=== PATIENT | female | born 1950 | race Caucasian/White ===

== ENCOUNTER 2017-06-28 10:19 | Day surgery (SDC) | payer OTHER ==
[~2017-06-28] VITALS: Ht 152.4 cm; Wt 62.0 kg
[~2017-06-28 10:19] MED LIST: ASTHMA MEDICATION
[2017-06-28 10:56] VITALS: Ht 152.4 cm; Wt 62.0 kg
[2017-06-28] MEDS ORDERED: [UNRECOGNIZED DRUG - OTHER] (10:59)
[2017-06-28] MEDS ORDERED: LOSARTAN (10:59)
[2017-06-28] MEDS ORDERED: ZANTAC (10:59)
[2017-06-28] MEDS ORDERED: SIMVASTATIN (10:59)
[2017-06-28 11:06] VITALS: BP 125/59; PULSE 64; RESP 18
--- NOTE | 2017-06-28 12:01 | OPPN ---
Date/Time of Note Date/Time of Note DATE: 06/28/17 TIME: 11:59 Operative Report Preoperative Diagnosis Screening Postoperative Diagnosis Melanosis coli Sigmoid colon polyp was removed Internal hemorrhoids Operation/Procedure Performed Colonoscopy and biopsy Surgeon see signature line phlebotomist lab assistant None Anesthesia: moderate sedation Estimated blood loss: none Transfusion Required none Specimen Sigmoid polyp Grafts/Implants none Complications none JAIRO CID MD Jun 28, 2017 12:01
[2017-06-28] MEDS ORDERED: MIDAZOLAM 1 MG/ML 2 ML INJ ONE ×2 (12:15→12:16)
[2017-06-28] MEDS ORDERED: FENTAnyl 50 MCG/ML VIAL ONE (12:15)
[2017-06-28 12:25] VITALS: BP 108/58; RESP 22
--- NOTE | 2017-06-28 12:41 | GILP ---
DATE OF PROCEDURE: NAME OF PROCEDURES: Colonoscopy and biopsy. SURGEON: Jairo Arrieta MD PREOPERATIVE DIAGNOSIS: Screening colonoscopy. POSTOPERATIVE DIAGNOSES 1. Colonoscopy all the way to the cecum. 2. Small sigmoid colon polyp was removed. 3. Redundant colon. 4. Melanosis coli. 5. Internal hemorrhoids. INDICATION FOR THE PROCEDURE: Ms. Lory Corona is a 66-year-old female patient who was scheduled for screening colonoscopy. The procedure and possible complications are well explained to the patient. The patient understood and consented to the procedure. DESCRIPTION OF PROCEDURE: Under the influence of fentanyl and Versed, the colonoscope was carefully introduced in the rectum and under direct vision, it was advanced all the way to the cecum. FINDINGS: The patient had a redundant colon. She had melanosis coli. She had a small sigmoid colo n polyp and it was removed using the biopsy forceps. She had internal hemorrhoids. She tolerated the procedure very well and there was no complication from the procedure. At the end of the procedures, she was awake with stable vital signs and she was discharged home to the care of her family. IMPRESSION: Please see postoperative diagnosis. PLAN: Next screening colonoscopy in 10 years. Dictated By: JAIRO VIERA/DARSHAN Conf#: [id number] DID#: [id number]
== END 2017-06-28 13:53 | disposition home or self-care (01) ==
LOC: GIL 10:19
PROVIDERS: ATTEND Internal Medicine Gastroenterology
DX: Z12.11 Encounter for screening for malignant neoplasm of colon (principal); K63.89 Other specified diseases of intestine; K64.8 Other hemorrhoids; I10 Essential (primary) hypertension
CPT/HCPCS: 45380; 88305; J2250; J3010; Z7610

== ENCOUNTER 2017-06-30 15:42 | Inpatient (IN) | payer OTHER ==
[2017-06-30] VITALS (14 sets, daily range): BP systolic 102–143; BP diastolic 60–83; PULSE 76–78; RESP 14–22; TEMP 98.7; Ht 152.4 cm; Wt 62.1 kg
[~2017-06-30] VITALS: Ht 152.4 cm; Wt 62.1 kg
[~2017-06-30 15:42] MED LIST changes: -ASTHMA MEDICATION; +LOSARTAN; +SIMVASTATIN; +SUGAMMADEX SODIUM 200 MG/2 ML VIAL IV ONE; +ZANTAC; +[UNRECOGNIZED DRUG - OTHER]
[2017-06-30] MEDS ORDERED: ONDANSETRON 4 MG INJ IV STA (16:28)
[2017-06-30] MEDS ORDERED: morphine 4 MG/ML VIAL IV STA (16:28)
[2017-06-30] MEDS ORDERED: SOD CHLORIDE 0.9% 1,000 ML IV STA ×2 (16:28→18:14)
[2017-06-30] MEDS ORDERED: IBUPROFEN 600 MG TAB PO ONE (16:30)
[2017-06-30 16:48] LABS: BASOPHILS % 0.3 % (0.0-2.0); EOSINOPHILS # 0.1 10^3/ul (0.0-0.5); EOSINOPHILS % 0.9 % (0.0-7.0); HEMATOCRIT 33.9 % (37.0-47.0); LYMPHOCYTES # 1.2 10^3/ul (0.8-2.9); LYMPHOCYTES % 9.1 % (15.0-51.0); MEAN CORPUSCULAR HEMOGLOBIN 29.3 pg (29.0-33.0); MEAN CORPUSCULAR HGB CONC 32.4 g/dl (32.0-37.0); MEAN CORPUSCULAR VOLUME 90.2 fl (82.0-101.0); MEAN PLATELET VOLUME 9.9 fl (7.4-10.4); MONOCYTE # 0.4 10^3/ul (0.3-0.9); MONOCYTES % 3.1 % (0.0-11.0); NEUTROPHIL # 11.5 10^3/ul (1.6-7.5); NEUTROPHILS % 85.8 % (39.0-77.0); PLATELET COUNT 280 10^3/UL (140-415); RED BLOOD COUNT 3.76 10^6/ul (4.20-5.40); RED CELL DISTRIBUTION WIDTH 13.9 % (11.5-14.5); WHITE BLOOD COUNT 13.4 10^3/ul (4.8-10.8)
[2017-06-30 16:57] LABS: ADD UMIC YES; UR ASCORBIC ACID NEGATIVE (NEGATIVE); UR BILIRUBIN (Dip) 1+ mg/dL (NEGATIVE); UR BLOOD (Dip) 2+ mg/dL (NEGATIVE); UR CLARITY CLEAR (CLEAR); UR COLOR AMBER (YELLOW); UR GLUCOSE (Dip) NEGATIVE (NEGATIVE); UR KETONES (Dip) 2+ mg/dL (NEGATIVE); UR LEUKOCYTE ESTERASE (Dip) NEGATIVE Leu/ul (NEGATIVE); UR MUCUS MODERATE /HPF (NONE SEEN); UR NITRITE (Dip) NEGATIVE (NEGATIVE); UR RBC 23 /HPF (0-5); UR SPECIFIC GRAVITY (Dip) 1.029 (1.003-1.030); UR TOTAL PROTEIN (Dip) 2+ mg/dl (NEGATIVE); UR UROBILINOGEN (Dip) NEGATIVE (NEGATIVE)
[2017-06-30 17:03] LABS: PROTIME 13.3 Sec (11.9-14.9)
[2017-06-30 17:06] LABS: ALBUMIN/GLOBULIN RATIO 1.05; BILIRUBIN,INDIRECT 0.5 mg/dl (0-1.1); BILIRUBIN,TOTAL 0.5 mg/dl (0.2-1.3); CALCIUM 9.3 mg/dl (8.4-10.2); CREATININE 0.69 mg/dl (0.44-1.00); POTASSIUM 3.2 mmol/L (3.5-5.1); TOTAL PROTEIN 7.8 g/dl (6.1-8.1)
--- NOTE | 2017-06-30 17:47 | ERD ---
ER Documentation Chief Complaint Chief Complaint generalized abdominal pain, no N/V/D. Had colonoscopy 2 days ago HPI 66-year-old woman complains of distended abdomen, constipation, abdominal cramping diffusely 2 days status post colonoscopy. She developed a fever today. She denies hematuria or dysuria, no blood per rectum or melena, no chest pain or shortness of breath, no sore throat, no cough, no rash. Patient denies precipitating or alleviating factors for her pain. Patient did not eat today. ROS All systems reviewed and are negative except as per history of present illness. Medications Home Meds Reported Medications [Bronkaid] No Conflict Check 06/28/17 [Simvastatin] No Conflict Check 06/28/17 [Zantac] No Conflict Check 06/28/17 [Losartan] No Conflict Check 06/28/17 Discontinued Reported Medications [Asthma Medication] No Conflict Check 05/12/11 Allergies Allergies: Coded Allergies: No Known Allergies (Verified Allergy, 05/12/11) PMhx/Soc Gastritis, asthma Anesthesia Reaction: No Hx Neurological Disorder: No Hx Respiratory Disorders: Yes (asthma) Hx Cardiac Disorders: Yes (HYPERTENSION) Hx Psychiatric Problems: No Hx Miscellaneous Medical Probl: Yes (HYPERLIPIDEMIA) Hx Alcohol Use: Yes Hx Substance Use: No Hx Tobacco Use: No Smoking Status: Never smoker FmHx Family History: No diabetes Physical Exam Vitals Vital Signs Date Time Temp Pulse Resp B/P Pulse Ox O2 Delivery O2 Flow Rate FiO2 06/30/17 15:46 101.4 115 22 145/76 100 Physical Exam GENERAL: Well-developed, well-nourished, febrile, nontoxic in appearance HEENT: Moist mucous membranes, pink conjunctiva, no cervical spine tenderness or step-off deformities, no goiter, no jaundice or icterus, extraocular movements intact without pain. No submandibular induration, and no pharyngeal erythema NEURO: Alert and oriented 3, cranial nerves II through XII intact bilaterally, pupils equal round reactive to light, no focal deficits or facial asymmetry, sensation intact distally Strength 5/5 in upper and lower extremities bilaterally CARDIAC: Tachycardic and regular, no murmurs rubs or gallops LUNGS: Clear bilaterally no wheezing crackles or stridor ABDOMEN: Soft, distended abdomen, without rebound or rigidity, protuberant, hypertympanic SKIN: Warm and dry to touch, no abrasions, contusions, or hematomas, no lacerations, no ecchymosis, no target lesions, and without ulcers EXTREMITIES: No clubbing cyanosis or edema, calves are bilaterally symmetrical, no Homans sign, no popliteal cord sign. Distal pulses equal and bilateral PSYCH: Normal affect without agitation or irritability Result Diagram: 06/30/17 1600 06/30/17 1600 Results 24 hrs Laboratory Tests Test 06/30/17 16:00 White Blood Count 13.410^3/ul Red Blood Count 3.7610^6/ul Hemoglobin 11.0g/dl Hematocrit 33.9% Mean Corpuscular Volume 90.2fl Mean Corpuscular Hemoglobin 29.3pg Mean Corpuscular Hemoglobin Concent 32.4g/dl Red Cell Distribution Width 13.9% Platelet Count 86356^3/UL Mean Platelet Volume 9.9fl Neutrophils % 85.8% Lymphocytes % 9.1% Monocytes % 3.1% Eosinophils % 0.9% Basophils % 0.3% Nucleated Red Blood Cells % 0.0/100WBC Neutrophils # 11.510^3/ul Lymphocytes # 1.210^3/ul Monocytes # 0.410^3/ul Eosinophils # 0.110^3/ul Basophils # 0.010^3/ul Nucleated Red Blood Cells # 0.010^3/ul Prothrombin Time 13.3Sec Prothrombin Time Ratio 1.0 INR International Normalized Ratio 1.00 Urine Color DREAD Urine Clarity CLEAR Urine pH 5.0 Urine Specific [place] 1.029 Urine Ketones 2+mg/dL Urine Nitrite NEGATIVEmg/dL Urine Bilirubin 1+mg/dL Urine Urobilinogen NEGATIVEmg/dL Urine Leukocyte Esterase NEGATIVELeu/ul Urine Microscopic RBC 23/HPF Urine Microscopic WBC 5/HPF Urine Mucus MODERATE/HPF Urine Hemoglobin 2+mg/dL Urine Glucose NEGATIVEmg/dL Urine Total Protein 2+mg/dl Sodium Level 137mmol/L Potassium Level 3.2mmol/L Chloride Level 101mmol/L Carbon Dioxide Level 23mmol/L Anion Gap 16 Blood Urea Nitrogen 9mg/dl Creatinine 0.69mg/dl Glucose Level 116mg/dl Calcium Level 9.3mg/dl Total Bilirubin 0.5mg/dl Direct Bilirubin 0.00mg/dl Indirect Bilirubin 0.5mg/dl Aspartate Amino Transf (AST/SGOT) 79IU/L Alanine Aminotransferase (ALT/SGPT) 100IU/L Alkaline Phosphatase 143IU/L Total Protein 7.8g/dl Albumin 4.0g/dl Globulin 3.80g/dl Albumin/Globulin Ratio 1.05 Lipase 42U/L Current Medications Medications (Trade) Dose Ordered Sig/Angelina Route PRN Reason Start Time Stop Time Status Last Admin Dose Admin Sodium Chloride (NS) 1,000 ml @ 1,000 mls/hr Q1H STAT IV 06/30/17 16:28 06/30/17 17:27 DC 06/30/17 16:36 Morphine Sulfate (morphine) 4 mg ONCE STAT IV 06/30/17 16:28 06/30/17 16:30 DC 06/30/17 16:36 Ondansetron HCl (Zofran Inj) 4 mg ONCE STAT IV 06/30/17 16:28 06/30/17 16:30 DC 06/30/17 16:36 Ibuprofen 600 mg 600 mg ONCE ONCE PO 06/30/17 16:30 06/30/17 16:31 DC 06/30/17 16:36 Sodium Chloride 1,000 ml @ 2,000 mls/hr Q30M STAT IV 06/30/17 18:14 06/30/17 18:43 DC Piperacillin Sod/ Tazobactam Sod (Zosyn 3.375gm/ 50 ml (Pmx)) 50 ml @ 100 mls/hr ONCE STAT IVPB 06/30/17 18:14 06/30/17 18:43 DC Procedures/MDM IV line was established patient was placed on [facility] rhythm strip revealed a sinus tachycardia at 110 bpm with upright P and T waves. Patient was febrile, blood and urine cultures were ordered results are pending I will follow-up. I do not suspect sepsis. I administered 1 L normal saline intravenously, and Bourne catheterization of the bladder to help with constipation. Patient received morphine 4 mg IV, Zofran 4 mg IV, and ibuprofen 600 mg p.o. Urine analysis was negative for infection. Recent colonoscopy was performed and revealed 1. Colonoscopy all the way to the cecum. 2. Small sigmoid colon polyp was removed. 3. Redundant colon. 4. Melanosis coli. 5. Internal hemorrhoids. CT scan of the abdomen and pelvis revealed diffuse pneumoperitoneum and ruptured viscus with extensive diverticulosis. Please refer to radiologist dictation for full report. I administered another 2 L normal saline intravenously and Zosyn 3.375 g IV 1. I immediately consulted her digital color press operator Dr. De La O who agreed to follow the patient. I immediately consulted surgeon mental health consultant regarding the patient's presentation, symptomatology, ED management, and CT scan findings. Patient to go to OR. CBC reveals leukocytosis at 13, electrolytes revealed mild hypokalemia, liver function tests unremarkable, urinalysis negative for infection, coagulation profile normal. Patient's pain is controlled and her vital signs are normal at this time, she will be supplemented with low-dose IV potassium and admitted pending the emergent open laparotomy Departure Diagnosis: Primary Impression: Acute peritonitis Additional Impressions: Colon perforation Diverticulosis Diverticulosis site: diverticulosis of large intestine Diverticulosis bleeding: diverticulosis with bleeding Qualified Code: K57.31 - Diverticulosis of large intestine with hemorrhage Acute hypokalemia Condition: Serious JO ANN CAMPBELL MD Jun 30, 2017 17:47
--- NOTE | 2017-06-30 18:13 | RADRPT ---
PROCEDURE: CT Abdomen and Pelvis without contrast. CLINICAL INDICATION: Abdominal pain. The patient had colonoscopy 2 days ago TECHNIQUE: CT scan of the abdomen and pelvis without contrast was performed on a multidetector hig h-resolution CT scanner. The patient was scanned without intravenous contrast. Coronal and sagittal reformatted images were obtained from the axial source images. Images were reviewed on a high-resol [employer] PACS workstation. The total exam CTDI equals 8.47 mGy and the total exam DLP equals 441.2 mGy- cm. One or more the following dose reduction techniques were utilized: Automated exposure control, adjus tment of the mA and / or kV according to patient's size, or use of iterative reconstruction techniqu e. DICOM images are available. COMPARISON: None. FINDINGS: Linear atelectasis/fibrosis at lung bases. Mild dependent atelectasis in posterior lung bases. There is a large amount of pneumoperitoneum. No abnormality is seen in the gallbladder. There is hepatic steatosis. There is an approximate 1.2 cm oval fluid density structure in the right lobe of the live r suggesting a cyst. No abnormality seen in the spleen. Fatty infiltration in the pancreas. No abnor mality seen in the adrenals or right kidney. There is nonspecific minimal fluid in the left renal co llecting system. No renal or ureteral stone is seen. No abdominal aortic aneurysm is seen. Calcifica tion in abdominal aorta and proximal right renal artery. No definite abnormality seen in the stomach . No ascites is seen. Bourne catheter in bladder. Calcified injection granulomas apparent in the subc utaneous fat bilateral gluteal regions. Very small umbilical hernia containing fat only. No definite abnormality of the uterus or adnexal regions is seen on CT. Diverticula in the descending, transverse and ascending colon. There is no specific evidence of acute diverticulitis seen. No defin ite dilated small bowel loops are seen. No enlarged lymph nodes are seen in the abdomen or pelvis. M ild degenerative changes at sacroiliac joints. Mild degenerative changes in thoracolumbar spine. IMPRESSION: Large amount of pneumoperitoneum consistent with ruptured hollow abdominal viscus. With the history of colonoscopy, ruptured colon is suspected. Colonic diverticulosis. No specific evidence of acute diverticulitis seen. Hepatic steatosis. Critical result discussed with Dr. Baeza at 06:11 p.m. o n 06/30/2017. RPTAT: HJES .Darshan Caballero MD, MD Date Time Electronically viewed and signed by .Darshan Caballero MD, on 06/30/2017 18:12 .S/
[2017-06-30] MEDS ORDERED: PIPER-TAZO 3.375 GM IV (PMX) 50 ML IVPB STA (18:14)
[2017-06-30] MEDS ORDERED: POTASSIUM CHLORIDE 50 ML IVPB ONE (19:00)
--- NOTE | 2017-06-30 19:15 | CONS ---
Date/Time of Note Date/Time of Note DATE: 06/30/17 TIME: 19:12 Assessment/Plan Assessment/Plan Additional Assessment/Plan Operated viscus, most likely sigmoid colon status post colonoscopy I discussed the need for urgent laparoscopic, possible open, colon resection and colostomy and possible repair perforated viscus All benefits, risks, alternatives discussed in detail. All questions answered. The patient elects to proceed. Consultation Date/Type/Reason Admit Date/Time Date of Consultation: Jun 30, 2017 Hx of Present Illness The patient is a 66-year-old female status post a colonoscopy on Tuesday. She began to have somatic abdominal pain right after the colonoscopy. Her symptoms persisted and she presented to the ER today. Her workup in the ER was consistent with a perforated viscus, most likely the colon. Past Medical History Medical History: other (Asthma) Past Surgical History Past Surgical Hx: no surgical history Family History Significant Family History: no pertinent family hx Social History Alcohol Use: none Smoking Status: Never smoker Exam/Review of Systems Vital Signs Vitals Vital Signs Date Time Temp Pulse Resp B/P Pulse Ox O2 Delivery O2 Flow Rate FiO2 06/30/17 15:46 101.4 115 22 145/76 100 Exam Constitutional: alert, oriented, well developed Psych: no complaints Head: normocephalic Eyes: nl conjunctiva ENMT: nl external ears & nose Neck: supple Respiratory: clear to auscultation Gastrointestinal: other (Distended with peritonitis present), soft Musculoskeletal: nl extremities to inspection Extremities: normal pulses Neurological: SQUARING MACHINE OPERATOR II-XII intact Skin: nl turgor Results Result Diagram: 06/30/17 1600 06/30/17 1600 Results 24 hrs Laboratory Tests Test 06/30/17 16:00 White Blood Count 13.4 H Red Blood Count 3.76 L Hemoglobin 11.0 L Hematocrit 33.9 L Mean Corpuscular Volume 90.2 Mean Corpuscular Hemoglobin 29.3 Mean Corpuscular Hemoglobin Concent 32.4 Red Cell Distribution Width 13.9 Platelet Count 280 Mean Platelet Volume 9.9 Neutrophils % 85.8 H Lymphocytes % 9.1 L Monocytes % 3.1 Eosinophils % 0.9 Basophils % 0.3 Nucleated Red Blood Cells % 0.0 Neutrophils # 11.5 H Lymphocytes # 1.2 Monocytes # 0.4 Eosinophils # 0.1 Basophils # 0.0 Nucleated Red Blood Cells # 0.0 Prothrombin Time 13.3 Prothrombin Time Ratio 1.0 INR International Normalized Ratio 1.00 Urine Color DREAD Urine Clarity CLEAR Urine pH 5.0 Urine Specific [place] 1.029 Urine Ketones 2+ H Urine Nitrite NEGATIVE Urine Bilirubin 1+ H Urine Urobilinogen NEGATIVE Urine Leukocyte Esterase NEGATIVE Urine Microscopic RBC 23 H Urine Microscopic WBC 5 Urine Mucus MODERATE Urine Hemoglobin 2+ H Urine Glucose NEGATIVE Urine Total Protein 2+ H Sodium Level 137 Potassium Level 3.2 L Chloride Level 101 Carbon Dioxide Level 23 Anion Gap 16 Blood Urea Nitrogen 9 Creatinine 0.69 Glucose Level 116 Calcium Level 9.3 Total Bilirubin 0.5 Direct Bilirubin 0.00 Indirect Bilirubin 0.5 Aspartate Amino Transf (AST/SGOT) 79 H Alanine Aminotransferase (ALT/SGPT) 100 H Alkaline Phosphatase 143 H Total Protein 7.8 Albumin 4.0 Globulin 3.80 H Albumin/Globulin Ratio 1.05 Lipase 42 Imaging Free Text/Dictation PROCEDURE: CT Abdomen and Pelvis without contrast. CLINICAL INDICATION: Abdominal pain. The patient had colonoscopy 2 days ago TECHNIQUE: CT scan of the abdomen and pelvis without contrast was performed on a multidetector high-resolution CT scanner. The patient was scanned without intravenous contrast. Coronal and sagittal reformatted images were obtained from the axial source images. Images were reviewed on a high-resolution PACS workstation. The total exam CTDI equals 8.47 mGy and the total exam DLP equals 441.2 mGy-cm. One or more the following dose reduction techniques were utilized: Automated exposure control, adjustment of the mA and / or kV according to patient's size, or use of iterative reconstruction technique. DICOM images are available. COMPARISON: None. FINDINGS: Linear atelectasis/fibrosis at lung bases. Mild dependent atelectasis in posterior lung bases. There is a large amount of pneumoperitoneum. No abnormality is seen in the gallbladder. There is hepatic steatosis. There is an approximate 1.2 cm oval fluid density structure in the right lobe of the liver suggesting a cyst. No abnormality seen in the spleen. Fatty infiltration in the pancreas. No abnormality seen in the adrenals or right kidney. There is nonspecific minimal fluid in the left renal collecting system. No renal or ureteral stone is seen. No abdominal aortic aneurysm is seen. Calcification in abdominal aorta and proximal right renal artery. No definite abnormality seen in the stomach. No ascites is seen. Bourne catheter in bladder. Calcified injection granulomas apparent in the subcutaneous fat bilateral gluteal regions. Very small umbilical hernia containing fat only. No definite abnormality of the uterus or adnexal regions is seen on CT. Diverticula in the descending, transverse and ascending colon. There is no specific evidence of acute diverticulitis seen. No definite dilated small bowel loops are seen. No enlarged lymph nodes are seen in the abdomen or pelvis. Mild degenerative changes at sacroiliac joints. Mild degenerative changes in thoracolumbar spine. IMPRESSION: Large amount of pneumoperitoneum consistent with ruptured hollow abdominal viscus. With the history of colonoscopy, ruptured colon is suspected. Colonic diverticulosis. No specific evidence of acute diverticulitis seen. Hepatic steatosis. Critical result discussed with Dr. Baeza at 06:11 p.m. on 2016. Medications Medications Current Medications Potassium Chloride 50 ml @ 50 mls/hr ONCE ONCE IVPB ; Start 06/30/17 at 19:00 ; Stop 06/30/17 at 19:59 Sodium Chloride (NS) 1,000 ml @ 75 mls/hr [id number] IV ; Start 06/30/17 at 19:05 ; Status UNV Ondansetron HCl (Zofran Inj) 4 mg Q6H PRN IV NAUSEA AND/OR VOMITING; Start at 19:30; Status UNV Morphine Sulfate (morphine) 2 mg Q4H PRN IV PAIN LEVEL 7-10; Start 06/30/17 at 19:30; Status UNV Pantoprazole (Protonix Iv) 40 mg DAILY@06 IV ; Start 07/01/17 at 06:00; Status UNV DAVID CORONADO MD Jun 30, 2017 19:15
[2017-06-30] MEDS ORDERED: LOSA25TA5 PO (19:18)
[2017-06-30] MEDS ORDERED: SIMV20TA PO (19:18)
[2017-06-30] MEDS ORDERED: ALBU18HF INHALATION (19:19)
[2017-06-30] MEDS ORDERED: MIDAZOLAM 1 MG/ML 2 ML INJ IV PRN (19:30)
[2017-06-30] MEDS ORDERED: hydrALAzine 20 MG INJ IV PRN (19:30)
[2017-06-30] MEDS ORDERED: ONDANSETRON 4 MG INJ IV PRN ×3 (19:30→22:00)
[2017-06-30] MEDS ORDERED: HYDROmorphONE (0.2 MG/ML) 10ML SYG IV PRN ×3 (19:30)
[2017-06-30] MEDS ORDERED: LABETALOL HCL 20MG INJ IV PRN (19:30)
[2017-06-30] MEDS ORDERED: TRIMETHOBENZAMIDE 100 MG/ML VIAL IM PRN (19:30)
[2017-06-30] MEDS ORDERED: DIPHENHYDRAMINE 50 MG INJ IV PRN (19:30)
[2017-06-30] MEDS ORDERED: FENTAnyl 50 MCG/ML VIAL IV PRN ×3 (19:30)
[2017-06-30] MEDS ORDERED: OXYCODONE/ACETAMINOPHEN (5/325) TAB PO PRN ×2 (19:30)
[2017-06-30] MEDS ORDERED: IPRATROPIUM (NEB) 0.5 MG/2.5 ML AMP HHN PRN (19:30)
[2017-06-30] MEDS ORDERED: NACL 0.9% 3 ML SYG IV SCH (19:30)
[2017-06-30] MEDS ORDERED: morphine 2 MG INJ IV PRN ×2 (19:30→22:00)
[2017-06-30] MEDS ORDERED: ALBUTEROL 0.083% (NEB) 2.5 MG/3 ML AMP HHN PRN (19:30)
[2017-06-30] MEDS ORDERED: EPHEDrine SULFATE 50 MG/5 ML SYG IV PRN (19:30)
[2017-06-30] MEDS ORDERED: MEPERIDINE 25 MG INJ IV PRN (19:30)
[2017-06-30] MEDS ORDERED: BUPIVACAINE 0.5%/EPI (SDV) 30 ML INJ ONE (19:46)
[2017-06-30] MEDS ORDERED: DEXAMETHASONE 4 MG/ML 1 ML INJ ONE (19:59)
[2017-06-30] MEDS ORDERED: ONDANSETRON 4 MG INJ ONE (19:59)
[2017-06-30] MEDS ORDERED: NEOSTIGMINE 3 MG/3 ML SYRINGE ONE (19:59)
[2017-06-30] MEDS ORDERED: FENTAnyl 50 MCG/ML VIAL ONE ×2 (19:59→20:41)
[2017-06-30] MEDS ORDERED: GLYCOPYRROLATE 0.4 MG INJ ONE (19:59)
[2017-06-30] MEDS ORDERED: CEFAZOLIN 1 GM INJ ONE (19:59)
[2017-06-30] MEDS ORDERED: ROCURONIUM 50 MG INJ ONE (19:59)
[2017-06-30] MEDS ORDERED: PROPOFOL 20 ML ONE (19:59)
[2017-06-30] MEDS ORDERED: MIDAZOLAM 1 MG/ML 2 ML INJ ONE (19:59)
[2017-06-30] MEDS ORDERED: LABETALOL HCL 20MG INJ ONE (20:56)
--- NOTE | 2017-06-30 21:36 | SIPON ---
Date/Time of Note Date/Time of Note DATE: 06/30/17 TIME: 21:36 Operative Report Preoperative Diagnosis Perforated viscus Postoperative Diagnosis Perforated cecum Operation/Procedure Performed Laparoscopic right hemicolectomy Surgeon see signature line dental assistant None Anesthesia: general Estimated blood loss: 50 - 100 ml's Transfusion Required none Specimen Cecum and appendix Grafts/Implants none Complications none DAVID CORONADO MD Jun 30, 2017 21:36
--- NOTE | 2017-06-30 21:42 | OPR ---
Date/Time of Note Date/Time of Note DATE: 06/30/17 TIME: 21:36 Operative Report Procedure Date: Jun 30, 2017 Preoperative Diagnosis Perforated viscus Postoperative Diagnosis Perforated cecum Operation/Procedure Performed Laparoscopic assisted right hemicolectomy Surgeon see signature line Yard Switcher None Anesthesia Type: general Anesthesiologist: Calixto Friedman M.D. Estimated Blood Loss: 50 - 100 ml's Transfusion none Specimen Cecum and appendix Grafts/Implants none Complications none Pt Condition Post Procedure: stable Disposition: PACU Indications The patient is a 66-year-old female with abdominal pain since her colonoscopy 2 days ago. It worsened today presented to the ER. Her CT showed a perforated viscus. I was called for consultation. I discussed laparoscopic, possible open colon resection, and, and possible colostomy. All benefits, risks, alternatives were discussed in detail. All questions were answered. The patient like to proceed. Procedure Description The patient was brought to operative room placed supine on the table. After preop antibiotics and SCDs were placed, the patient was intubated and the abdomen was cleaned prepped draped in sterile fashion. A 5 mm incision was made at the umbilicus. Using a fiber laparoscope containing trocar, the abdomen was entered direct vision and insufflated 15mm of CO2. A 5 mm right lower quadrant trocar as well as a 5 mm left upper quadrant quadrant trocar was placed during the case. An additional 5 mm trochars placed in the right upper quadrant. At this point, I could see that the perforation was most likely colonic. I placed a GelPort hand port trocar in the midline by enlarging the 5 mm incision. At this point I noted that the perforation was in the cecum. There is a linear tear of the serosa with a perforation in the middle. There was minimal soilage. Using harmonic scalpel, I mobilized the small bowel cecum and right colon around the hepatic flexure. I mobilized the colon from its retroperitoneal attachments. I could not easily bring up the cecum and terminal ileum and right colon into the abdominal wound. I chose a spot on the terminal ileum and divided the terminal ileum with a 75 mm millimeters cutter blue load. I transected the ascending colon with 75 mm linear cutter. The serial mesentery was then serially clamped, tied, and divided with 2-0 silk sutures. The cecum and appendix was passed off the field as specimen. A [id number], functional end-to-end double stapled anastomosis was then performed with a 75 mm Endo linear cutter below. The colotomy was closed with a TA 60 stapler. The anastomosis was hemostatic, without tension. I then irrigated out the entire abdomen with normal saline. Effluent was clear. At this point I desufflated the abdomen moved all trochars. The fascia of the midline incision was closed with 2 0 looped PDS sutures. One started superiorly one started inferiorly. It was tied in the middle. The wound was irrigated. All incisions were closed with mayte. The midline incision was closed loosely and packed in between the mayte with half inch gauze. A 2 x 2 gauze and Tegaderm was applied to this incision only. The patient taught procedure well and was extubated in the OR. She was transferred to recovery room in stable condition. DAVID CORONADO MD Jun 30, 2017 21:42
[2017-06-30] MEDS ORDERED: ACETAMINOPHEN 325 MG TAB PO PRN (22:00)
[2017-06-30] MEDS: SOD CHLORIDE 0.9% 1,000 ML IV SCH (23:44)
[2017-06-30] MEDS: KETOROLAC 15 MG INJ IV SCH (23:45)
[2017-07-01] VITALS: BP 140/62; PULSE 72; RESP 18
[2017-07-01] MEDS ORDERED: metroNIDAZOLE 500 MG/NS (PMX) 100 ML IVPB SCH
[2017-07-01] MEDS ORDERED: CIPROFLOXACIN 400MG/D5W 200 ML IVPB SCH
[2017-07-01] MEDS: D5W-0.45 NACL + KCL 20 MEQ 1,000 ML IV SCH ×4 (01:00→21:00)
[2017-07-01] MEDS ORDERED: ALBUTEROL HFA 8 GM INHALER INH PRN (01:30)
[2017-07-01 01:35] LABS: ABNORMAL IP MESSAGE 1; BASOPHILS % 0.2 % (0.0-2.0); EOSINOPHILS % 0.1 % (0.0-7.0); HEMATOCRIT 29.1 % (37.0-47.0); HEMOGLOBIN 9.6 g/dl (12.0-16.0); LYMPHOCYTES # 0.4 10^3/ul (0.8-2.9); LYMPHOCYTES % 4.4 % (15.0-51.0); MEAN CORPUSCULAR HEMOGLOBIN 29.9 pg (29.0-33.0); MEAN CORPUSCULAR VOLUME 90.7 fl (82.0-101.0); MEAN PLATELET VOLUME 9.9 fl (7.4-10.4); MONOCYTE # 0.3 10^3/ul (0.3-0.9); MONOCYTES % 3.1 % (0.0-11.0); NEUTROPHIL # 8.5 10^3/ul (1.6-7.5); PLATELET COUNT 250 10^3/UL (140-415); RED BLOOD COUNT 3.21 10^6/ul (4.20-5.40); RED CELL DISTRIBUTION WIDTH 14.1 % (11.5-14.5); WHITE BLOOD COUNT 9.3 10^3/ul (4.8-10.8)
[2017-07-01 01:42] LABS: NEUTROPHILS % 91.8 % (39.0-77.0); POSITIVE DIFF @See below
[2017-07-01 01:58] LABS: ALBUMIN/GLOBULIN RATIO 0.93; BILIRUBIN,INDIRECT 0.2 mg/dl (0-1.1); BILIRUBIN,TOTAL 0.2 mg/dl (0.2-1.3); CALCIUM 8.1 mg/dl (8.4-10.2); CREATININE 0.54 mg/dl (0.44-1.00); MAGNESIUM 1.7 mg/dl (1.7-2.5); POTASSIUM 3.3 mmol/L (3.5-5.1); TOTAL PROTEIN 6.2 g/dl (6.1-8.1)
[2017-07-01 05:00] VITALS: BP 136/64; PULSE 70; RESP 20
[2017-07-01] MEDS: PANTOPRAZOLE 40 MG INJ IV SCH (05:24)
[2017-07-01] MEDS: KETOROLAC 15 MG INJ IV SCH ×4 (05:24→22:00)
[2017-07-01] MEDS ORDERED: PANTOPRAZOLE 40 MG INJ IV SCH (06:00)
--- NOTE | 2017-07-01 06:22 | HP ---
Date/Time of Note Date/Time of Note DATE: 07/01/17 TIME: 05:57 Assessment/Plan VTE Prophylaxis VTE Prophylaxis Intervention: LMWH Lines/Catheters IV [facility]atheter Type (from [facility]): Saline Lock Urinary Cath still in place: Yes Reason Cath still needed: other (indicate) (clinical condition) Assessment/Plan Chief Complaint/Hosp Course This is a 66 year female being admitted to the [facility] floor for: #1 perforated abdominal viscus: Secondary to recent colonoscopy. Patient is status post emergent laparoscopic assisted right hemicolectomy. She tolerated the procedure well. Currently NG tube is in place. We will keep the patient n.p.o. Zofran for nausea. Pain control as needed. Await further instructions from general surgery appreciate the recommendations and assistance in this case. She did receive prophylactic antibiotics, #2 Leukocytosis: Secondary #1. Patient did receive antibiotics in the ED. Patient also was afebrile. Will continue to trend. #3 Electrolyte derangement: We will replete potassium and magnesium. #4 Hypertension: At the current time will hold her antihypertensive medications and monitor blood pressure, will add as needed antihypertensives as indicated. #5 hyperlipidemia: We will check lipid panel, hold her statin at the current time until she resumes p.o. diet. #6 asthma: We will resume patient's home inhaler #7 DVT GI prophylaxis: Lovenox, no GI prophylaxis indicated Further treatment strategy will be implemented as per the clinical course Problems: HPI/ROS Admit Date/Time Admit Date/Time Hx of Present Illness cc: abdominal pain x 2 days, nausea This is 66-year-old woman complains of distended abdomen, constipation, abdominal cramping diffusely 2 days status post colonoscopy on 06/28/[address] Arrieta. She developed a fever today. She denies hematuria or dysuria, no blood per rectum or melena, no chest pain or shortness of breath, no sore throat , no cough, no rash. Patient denies precipitating or alleviating factors for her pain. Patient did not eat today. At [facility] ER she had a CAT scan that was consistent with large pneumoperitoneum with rupture of abdominal viscus. Surgery on-call was consulted for emergent surgery. She had a laparoscopic-assisted right hemicolectomy performed. Patient tolerated the procedure well. She is currently sitting comfortably in bed. She does have an NG tube connected to wall suction which is draining minimal amount of dark bile. Her pain is well controlled at this time. Allergies: NKDA Medications: See CANDELARIA RAYGOZA Const: As per HPI Eyes : No pain discharge or redness or change in visual acuity ENT: No pain, sore throat, congestion, congestion, dysphagia or discharge Respiratory: No shortness of breath, cough, sputum, wheezing, or pleuritic pain Cardiovascular: No chest pain, palpitation, PND, or edema GI : As per HPI Genitourinary: No dysuria, hematuria, flank pain , discharge or CVA tenderness Musculoskeletal: No joint pain, back pain, neck pain, restricted range of motion in neck or joints Skin: No rash, bruising or hives Neuro: No headache, dizziness, syncope, seizure, focal weakness Endocrine: No polyuria, polydipsia, temperature intolerance Psych: No hallucination, depression, anxiety or suicidal ideation Psychological: no complaints PMH/Family/Social Past Medical History Asthma, hypertension, arthritis, hyperlipidemia, Medical History: other (Asthma) Past Surgical History sigmoid colon poylp removed s/p colonoscopy on 06/28, status post laparoscopic right hemicolectomy during this hospital admission Family History Significant Family History: no pertinent family hx Social History Alcohol Use: occasionally Smoking Status: Never smoker Drug Use: none Exam/Review of Systems Vital Signs Vitals Vital Signs Date Time Temp Pulse Resp B/P Pulse Ox O2 Delivery O2 Flow Rate FiO2 07/01/17 00:02 97.4 06/30/17 22:45 Nasal Cannula 2.0 06/30/17 22:45 77 18 132/60 98 Intake and Output 06/30/17 06/30/17 07/01/17 15:00 23:00 07:00 Intake Total 2000 ml 300 ml Output Total 1175 ml Balance 825 ml 300 ml Exam Exam General: Patient is sitting in bed in no acute distress HEENT: Atraumatic, normocephalic. The pupils are equal, round and reactive. Extraocular motor are intact, NG tube in place connected to wall suction Neck: Supple with full range of motion. No rigidity or meningismus Chest: Nontender Lungs: Clear to auscultation bilaterally no crackles rales or wheezing Heart: Normal S1-S2, Regular rhythm and rate. No murmur, S3, or S4 Abdomen: Soft, mild tender to palpation diffusely, surgical sites clean dry and intact, no bowel sounds at this time Extremities: Normal to inspection, no edema no cyanosis Neurologic: Normal mental status, speech normal, cranial nerves II through XII are intact, motor and sensory are intact, no focal weakness Additional Comments PROCEDURE: CT Abdomen and Pelvis without contrast. CLINICAL INDICATION: Abdominal pain. The patient had colonoscopy 2 days ago TECHNIQUE: CT scan of the abdomen and pelvis without contrast was performed on a multidetector high-resolution CT scanner. The patient was scanned without intravenous contrast. Coronal and sagittal reformatted images were obtained from the axial source images. Images were reviewed on a high-resolution PACS workstation. The total exam CTDI equals 8.47 mGy and the total exam DLP equals 441.2 mGy-cm. One or more the following dose reduction techniques were utilized: Automated exposure control, adjustment of the mA and / or kV according to patient's size, or use of iterative reconstruction technique. DICOM images are available. COMPARISON: None. FINDINGS: Linear atelectasis/fibrosis at lung bases. Mild dependent atelectasis in posterior lung bases. There is a large amount of pneumoperitoneum. No abnormality is seen in the gallbladder. There is hepatic steatosis. There is an approximate 1.2 cm oval fluid density structure in the right lobe of the liver suggesting a cyst. No abnormality seen in the spleen. Fatty infiltration in the pancreas. No abnormality seen in the adrenals or right kidney. There is nonspecific minimal fluid in the left renal collecting system. No renal or ureteral stone is seen. No abdominal aortic aneurysm is seen. Calcification in abdominal aorta and proximal right renal artery. No definite abnormality seen in the stomach. No ascites is seen. Bourne catheter in bladder. Calcified injection granulomas apparent in the subcutaneous fat bilateral gluteal regions. Very small umbilical hernia containing fat only. No definite abnormality of the uterus or adnexal regions is seen on CT. Diverticula in the descending, transverse and ascending colon. There is no specific evidence of acute diverticulitis seen. No definite dilated small bowel loops are seen. No enlarged lymph nodes are seen in the abdomen or pelvis. Mild degenerative changes at sacroiliac joints. Mild degenerative changes in thoracolumbar spine. IMPRESSION: Large amount of pneumoperitoneum consistent with ruptured hollow abdominal viscus. With the history of colonoscopy, ruptured colon is suspected. Colonic diverticulosis. No specific evidence of acute diverticulitis seen. Hepatic steatosis. Critical result discussed with Dr. Campbell at 06:11 p.m. on 2016. RPTAT: HJES .Darshan Caballero MD, Date Time Electronically viewed and signed by .Darshan Caballero MD, on 06/30/2017 18:12 .S/ CC: JO ANN CAMPBELL MD Labs Result Diagram: 07/01/17 0123 07/01/17 0123 Medications Medications Current Medications Sodium Chloride (NS) 1,000 ml @ 75 mls/hr [id number] IV Last administered on 23:44; Admin Dose 75 MLS/HR; Start 06/30/17 at 19:05 Ondansetron HCl (Zofran Inj) 4 mg Q6H PRN IV NAUSEA AND/OR VOMITING; Start at 19:30 Morphine Sulfate (morphine) 2 mg Q4H PRN IV PAIN LEVEL 7-10; Start 06/30/17 at 19:30 Pantoprazole (Protonix Iv) 40 mg DAILY@06 IV Last administered on 07/01/17 05 :24; Admin Dose 40 MG; Start 07/01/17 at 06:00 Ketorolac Tromethamine (Toradol) 15 mg Q6H IV Last administered on 07/01/17 05:24; Admin Dose 15 MG; Start 06/30/17 at 22:00; Stop 07/03/17 at 21:59 Acetaminophen (Tylenol Tab) 650 mg Q6H PRN PO PAIN AND OR ELEVATED TEMP; Start 06/30/17 at 22:00 Ibuprofen 600 mg 600 mg Q6H PRN PO PAIN LEVEL 1-5; Start 07/03/17 at 22:00 Potassium Chloride/Dextrose/ Sod Cl (D5-1/2ns + KCl 20 Meq) 1,000 ml @ 100 mls/ hr Q10H IV ; Start 07/01/17 at 01:00 Enoxaparin Sodium (Lovenox) 40 mg DAILY@07 SC ; Start 07/01/17 at 07:00 ABY LUO Jul 01, 2017 06:07
[2017-07-01 06:30] LABS: ABNORMAL IP MESSAGE 1; HEMATOCRIT 29.5 % (37.0-47.0); HEMOGLOBIN 9.5 g/dl (12.0-16.0); MEAN CORPUSCULAR HEMOGLOBIN 29.1 pg (29.0-33.0); MEAN CORPUSCULAR HGB CONC 32.2 g/dl (32.0-37.0); MEAN CORPUSCULAR VOLUME 90.5 fl (82.0-101.0); MEAN PLATELET VOLUME 10.2 fl (7.4-10.4); PLATELET COUNT 247 10^3/UL (140-415); RED BLOOD COUNT 3.26 10^6/ul (4.20-5.40); RED CELL DISTRIBUTION WIDTH 13.7 % (11.5-14.5); WHITE BLOOD COUNT 11.1 10^3/ul (4.8-10.8)
[2017-07-01] MEDS ORDERED: POTASSIUM CHLORIDE 250 ML IVPB ONE ×2 (06:30→09:00)
[2017-07-01] MEDS ORDERED: MAGNESIUM SULFATE 2 GM/50 ML 50 ML IVPB ONE (06:30)
[2017-07-01 06:59] LABS: POSITIVE DIFF @See below
[2017-07-01] MEDS ORDERED: ENOXAPARIN 40 MG/0.4 ML SYG SC SCH (07:00)
[2017-07-01 07:01] LABS: CALCIUM 8.1 mg/dl (8.4-10.2); CREATININE 0.57 mg/dl (0.44-1.00); POTASSIUM 3.3 mmol/L (3.5-5.1)
[2017-07-01 07:26] VITALS: BP_DIAS 59
[2017-07-01 07:30] VITALS: BP 133/61; RESP 18
[2017-07-01] MEDS: SOD CHLORIDE 0.9% 1,000 ML IV SCH ×2 (08:25→21:45)
[2017-07-01 08:45] LABS: ANISOCYTOSIS 1+ (0-0); EOSINOPHILS % (M) 1 % (0-7); MONOCYTES % (M) 4 % (0-11); PLATELET ESTIMATE NORMAL; POIKILOCYTOSIS 1+ (0-0); POLYCHROMASIA 1+ (0-0); SPHEROCYTES 1+ (0-0)
[2017-07-01] MEDS: ACETAMINOPHEN 325 MG TAB PO SCH ×3 (09:48→17:41)
--- NOTE | 2017-07-01 14:36 | PN ---
Date/Time of Note Date/Time of Note DATE: 07/01/17 TIME: 14:35 Assessment/Plan Lines/Catheters IV Catheter Type (from Nrsg): Saline Lock Bourne in Place (from Nrsg): Yes Assessment/Plan Chief Complaint/Hosp Course Postop day #1 status post right hemicolectomy Advance diet as tolerated D/C Bourne tomorrow Hopefully discharged over the weekend Problems: Subjective 24 Hr Interval Summary Constitutional: ambulates, improved, no complaints Pain Control: well controlled Exam/Review of Systems Vital Signs Vitals Vital Signs Date Time Temp Pulse Resp B/P Pulse Ox O2 Delivery O2 Flow Rate FiO2 07/01/17 07:30 98.6 79 18 133/61 95 07/01/17 05:00 Nasal Cannula 2.0 Intake and Output 06/30/17 06/30/17 07/01/17 15:00 23:00 07:00 Intake Total 2000 ml 510 ml Output Total 1175 ml 1025 ml Balance 825 ml -515 ml Exam Constitutional: alert, oriented, well developed Eyes: nl conjunctiva ENMT: nl external ears & nose Neck: supple Respiratory: clear to auscultation Cardiovascular: regular rate and rhythm Gastrointestinal: distended (Mildly), soft Results Result Diagram: 07/01/1751107/01/1712 DAVID CORONADO MD Jul 01, 2017 14:36
--- NOTE | 2017-07-01 14:42 | PN ---
Date/Time of Note Date/Time of Note DATE: 07/01/17 TIME: 14:42 Assessment/Plan VTE Prophylaxis VTE Prophylaxis Intervention: SCD's Lines/Catheters IV Catheter Type (from Nrsg): Peripheral IV Urinary Cath still in place: No Assessment/Plan Assessment/Plan 1. perforated abdominal viscus s/p right hemicolectomy POD #1 - secondary to colonoscopy - Surgery on board and recommendations appreciated - Will continue pain control - Advance diet as tolerated 2. Leukocytosis secondary to#1 - Received dose of antibiotics preop and has remained afebrile - continue to monitor 3. Hypokalemia - replaced - continue to monitor 4. HTN - BP stable 5. hyperlipidemia - on statin - will resume once tolerating diet 6. asthma - PRN nebs 7. Disposition - Continue advancing diet and discharge in next 48 hours if remains stable Subjective 24 Hr Interval Summary Free Text/Dictation Patient doing well and denies any worsening pain. Has not had return of bowel function yet. Tolerating clears with no nausea or vomiting. Exam/Review of Systems Vital Signs Vitals Vital Signs Date Time Temp Pulse Resp B/P Pulse Ox O2 Delivery O2 Flow Rate FiO2 07/01/17 07:30 98.6 79 18 133/61 95 07/01/17 05:00 Nasal Cannula 2.0 Intake and Output 06/30/17 06/30/17 07/01/17 15:00 23:00 07:00 Intake Total 2000 ml 510 ml Output Total 1175 ml 1025 ml Balance 825 ml -515 ml Exam General: Patient is sitting in bed in no acute distress, answering questions appropriately Neck: Supple with full range of motion. Lungs: Clear to auscultation bilaterally no crackles rales or wheezing Heart: Normal S1-S2, Regular rhythm and rate. No murmur, S3, or S4 Abdomen: Soft, mild tender to palpation diffusely, surgical sites clean dry and intact, nondistended Extremities: Normal to inspection, no edema no cyanosis Neurologic: Normal mental status, speech normal, cranial nerves II through XII are intact, motor and sensory are intact, no focal weakness Results Result Diagram: 07/01/17 0507/01/1712 Results 24 hrs Laboratory Tests Test 06/30/17 16:00 06/30/17 18:41 07/01/17 01:23 07/01/17 05:12 White Blood Count 13.4 H 9.3 # 11.1 H Red Blood Count 3.76 L 3.21 L 3.26 L Hemoglobin 11.0 L 9.6 L 9.5 L Hematocrit 33.9 L 29.1 L 29.5 L Mean Corpuscular Volume 90.2 90.7 90.5 Mean Corpuscular Hemoglobin 29.3 29.9 29.1 Mean Corpuscular Hemoglobin Concent 32.4 33.0 32.2 Red Cell Distribution Width 13.9 14.1 13.7 Platelet Count 280 250 247 Mean Platelet Volume 9.9 9.9 10.2 Neutrophils % 85.8 H 91.8 H Lymphocytes % 9.1 L 4.4 L Monocytes % 3.1 3.1 Eosinophils % 0.9 0.1 Basophils % 0.3 0.2 Nucleated Red Blood Cells % 0.0 0.0 0.0 Neutrophils # 11.5 H 8.5 H Lymphocytes # 1.2 0.4 L Monocytes # 0.4 0.3 Eosinophils # 0.1 0.0 Basophils # 0.0 0.0 Nucleated Red Blood Cells # 0.0 0.0 Prothrombin Time 13.3 Prothrombin Time Ratio 1.0 INR International Normalized Ratio 1.00 Urine Color DREAD Urine Clarity CLEAR Urine pH 5.0 Urine Specific Osborn 1.029 Urine Ketones 2+ H Urine Nitrite NEGATIVE Urine Bilirubin 1+ H Urine Urobilinogen NEGATIVE Urine Leukocyte Esterase NEGATIVE Urine Microscopic RBC 23 H Urine Microscopic WBC 5 Urine Mucus MODERATE Urine Hemoglobin 2+ H Urine Glucose NEGATIVE Urine Total Protein 2+ H Sodium Level 137 142 142 Potassium Level 3.2 L 3.3 L 3.3 L Chloride Level 101 111 H 110 Carbon Dioxide Level 23 20 L 18 L Anion Gap 16 14 17 H Blood Urea Nitrogen 9 6 L 7 Creatinine 0.69 0.54 0.57 Glucose Level 116 147 133 Calcium Level 9.3 8.1 L 8.1 L Total Bilirubin 0.5 0.2 Direct Bilirubin 0.00 0.00 Indirect Bilirubin 0.5 0.2 Aspartate Amino Transf (AST/SGOT) 79 H 85 H Alanine Aminotransferase (ALT/SGPT) 100 H 109 H Alkaline Phosphatase 143 H 102 Total Protein 7.8 6.2 # Albumin 4.0 3.0 #L Globulin 3.80 H 3.20 Albumin/Globulin Ratio 1.05 0.93 Lipase 42 Lactic Acid Level 0.8 Magnesium Level 1.7 Segmented Neutrophils % (Manual) 66 Band Neutrophils % (Manual) 27 H Lymphocytes % (Manual) 2 L Monocytes % (Manual) 4 Eosinophils % (Manual) 1 Neutrophils # (Manual) 7.6 H Band Neutrophils # 2.9 H Absolute Lymphocytes (Manual) 0.2 L Absolute Monocytes (Manual) 0.4 Platelet Estimate NORMAL Polychromasia 1+ Poikilocytosis 1+ Anisocytosis 1+ Spherocytes 1+ Medications Medications Current Medications Sodium Chloride (NS) 1,000 ml @ 75 mls/hr [id number] IV Last administered on 23:44; Admin Dose 75 MLS/HR; Start 06/30/17 at 19:05 Ondansetron HCl (Zofran Inj) 4 mg Q6H PRN IV NAUSEA AND/OR VOMITING; Start at 19:30 Morphine Sulfate (morphine) 2 mg Q4H PRN IV PAIN LEVEL 7-10; Start 06/30/17 at 19:30 Pantoprazole (Protonix Iv) 40 mg DAILY@06 IV Last administered on 07/01/17 05 :24; Admin Dose 40 MG; Start 07/01/17 at 06:00 Ketorolac Tromethamine (Toradol) 15 mg Q6H IV Last administered on 07/01/17 09:48; Admin Dose 15 MG; Start 06/30/17 at 22:00; Stop 07/03/17 at 21:59 Acetaminophen (Tylenol Tab) 650 mg Q6H PRN PO PAIN AND OR ELEVATED TEMP; Start 06/30/17 at 22:00 Ibuprofen 600 mg 600 mg Q6H PRN PO PAIN LEVEL 1-5; Start 07/03/17 at 22:00 Potassium Chloride/Dextrose/ Sod Cl (D5-1/2ns + KCl 20 Meq) 1,000 ml @ 100 mls/ hr Q10H IV ; Start 07/01/17 at 01:00 Acetaminophen (Tylenol Tab) 650 mg Q6 PO Last administered on 07/01/17 09:48 ; Admin Dose 650 MG; Start 07/01/17 at 07:00 MATHEW SORIANO MD Jul 01, 2017 14:42
[2017-07-01 15:30] VITALS: BP 128/60; RESP 18
[2017-07-01 19:27] VITALS: BP 126/60; RESP 18
[2017-07-02] MEDS: ACETAMINOPHEN 325 MG TAB PO SCH ×4 (00:05→17:44)
[2017-07-02 02:04] VITALS: BP 126/61; RESP 18
[2017-07-02] MEDS: KETOROLAC 15 MG INJ IV SCH ×5 (04:00→21:36)
[2017-07-02] MEDS: PANTOPRAZOLE 40 MG INJ IV SCH (05:42)
[2017-07-02] MEDS: D5W-0.45 NACL + KCL 20 MEQ 1,000 ML IV SCH (07:00)
[2017-07-02 08:31] VITALS: BP 131/61; RESP 18
--- NOTE | 2017-07-02 08:52 | PN ---
Date/Time of Note Date/Time of Note DATE: 07/02/17 TIME: 08:52 Assessment/Plan VTE Prophylaxis VTE Prophylaxis Intervention: SCD's Lines/Catheters IV Catheter Type (from Nrsg): Peripheral IV Assessment/Plan Assessment/Plan 1. Perforated abdominal viscus s/p right hemicolectomy POD #2 - secondary to colonoscopy - Surgery on board and recommendations appreciated - Will continue pain control - Advance diet as tolerated - No BM and after diet advance and no BM, will encourage bowel regime 2. Leukocytosis secondary to #1 - Received dose of antibiotics preop and has remained afebrile - continue to monitor 3. Hypokalemia - replaced - continue to monitor 4. HTN - BP stable - resumed Losartan 5. hyperlipidemia - on statin 6. asthma - PRN nebs 7. Disposition - Continue advancing diet - Bowel regime if no BM - if no issues, d/c in next 24 hours Subjective 24 Hr Interval Summary Free Text/Dictation Patient states pain is controlled on medications. Tolerating full liquid diet and will advance. Has not had a BM but denies any constipation. No acute overnight events. Exam/Review of Systems Vital Signs Vitals Vital Signs Date Time Temp Pulse Resp B/P Pulse Ox O2 Delivery O2 Flow Rate FiO2 07/02/17 08:31 99.0 74 18 131/61 96 07/01/17 05:00 Nasal Cannula 2.0 Intake and Output 07/01/17 07/01/17 07/02/17 15:00 23:00 07:00 Intake Total 250 ml 1070 ml 700 ml Output Total 550 ml 850 ml Balance 250 ml 520 ml -150 ml Exam General: Patient is sitting in bed in no acute distress, answering questions appropriately Neck: Supple with full range of motion. Lungs: Clear to auscultation bilaterally no crackles rales or wheezing Heart: Normal S1-S2, Regular rhythm and rate. No murmur, S3, or S4 Abdomen: Soft, mild tender to palpation diffusely, surgical sites clean dry and intact, nondistended Extremities: Normal to inspection, no edema no cyanosis Neurologic: Normal mental status, speech normal, cranial nerves II through XII are intact, motor and sensory are intact, no focal weakness Skin: no new rashes Results Result Diagram: 07/01/1751107/01/17511 Medications Medications Current Medications Sodium Chloride (NS) 1,000 ml @ 75 mls/hr [id number] IV Last administered on 23:44; Admin Dose 75 MLS/HR; Start 06/30/17 at 19:05 Ondansetron HCl (Zofran Inj) 4 mg Q6H PRN IV NAUSEA AND/OR VOMITING; Start at 19:30 Morphine Sulfate (morphine) 2 mg Q4H PRN IV PAIN LEVEL 7-10; Start 06/30/17 at 19:30 Pantoprazole (Protonix Iv) 40 mg DAILY@06 IV Last administered on 07/02/17 05 :42; Admin Dose 40 MG; Start 07/01/17 at 06:00 Ketorolac Tromethamine (Toradol) 15 mg Q6H IV Last administered on 07/02/17 05:10; Admin Dose 15 MG; Start 06/30/17 at 22:00; Stop 07/03/17 at 21:59 Acetaminophen (Tylenol Tab) 650 mg Q6H PRN PO PAIN AND OR ELEVATED TEMP; Start 06/30/17 at 22:00 Ibuprofen 600 mg 600 mg Q6H PRN PO PAIN LEVEL 1-5; Start 07/03/17 at 22:00 Potassium Chloride/Dextrose/ Sod Cl (D5-1/2ns + KCl 20 Meq) 1,000 ml @ 100 mls/ hr Q10H IV Last administered on 07/01/17 16:41; Admin Dose 100 MLS/HR; Start 07/01/17 at 01:00 Acetaminophen (Tylenol Tab) 650 mg Q6 PO Last administered on 07/02/17 00:05 ; Admin Dose 650 MG; Start 07/01/17 at 07:00 MATHEW SORIANO MD Jul 02, 2017 08:52
[2017-07-02] MEDS: SOD CHLORIDE 0.9% 1,000 ML IV SCH (10:46)
[2017-07-02] MEDS: LOSARTAN 25 MG TAB PO SCH (11:46)
[2017-07-02 15:02] VITALS: BP 116/57; RESP 18
[2017-07-02 19:28] VITALS: BP 129/60; RESP 16
[2017-07-02] MEDS ORDERED: ATORVASTATIN 10 MG TAB PO SCH (21:00)
[2017-07-03] MEDS: ACETAMINOPHEN 325 MG TAB PO SCH ×3 (00:12→13:03)
[2017-07-03] MEDS: SOD CHLORIDE 0.9% 1,000 ML IV SCH (00:25)
[2017-07-03 01:33] VITALS: BP 132/61; RESP 18
[2017-07-03] MEDS: KETOROLAC 15 MG INJ IV SCH ×2 (04:25→09:58)
[2017-07-03 06:20] LABS: ALBUMIN 2.4 g/dl (3.3-4.9); CALCIUM 8.5 mg/dl (8.4-10.2); CREATININE 0.54 mg/dl (0.44-1.00); MAGNESIUM 1.9 mg/dl (1.7-2.5); PHOSPHORUS 4.4 mg/dl (2.5-4.9); POTASSIUM 3.6 mmol/L (3.5-5.1)
[2017-07-03] MEDS: PANTOPRAZOLE 40 MG INJ IV SCH (06:31)
--- NOTE | 2017-07-03 07:26 | PN ---
Date/Time of Note Date/Time of Note DATE: 07/03/17 TIME: 07:25 Assessment/Plan Lines/Catheters IV Catheter Type (from Nrs): Peripheral IV Assessment/Plan Chief Complaint/Hosp Course Postop day #3 status post right hemicolectomy Tolerating soft diet with bowel function Okay to discharge home No need for wound care Recommend oral antibiotics 5 days Problems: Subjective 24 Hr Interval Summary Constitutional: ambulates, flatus, improved, no complaints Pain Control: well controlled Exam/Review of Systems Vital Signs Vitals Vital Signs Date Time Temp Pulse Resp B/P Pulse Ox O2 Delivery O2 Flow Rate FiO2 07/03/17 01:33 99.3 79 18 132/61 95 07/01/17 05:00 Nasal Cannula 2.0 Intake and Output 07/02/17 07/02/17 07/03/17 15:00 23:00 07:00 Intake Total 1200 ml 500 ml Balance 1200 ml 500 ml Exam Constitutional: alert, well developed Psych: no complaints Head: normocephalic Eyes: nl conjunctiva Neck: supple Respiratory: clear to auscultation Cardiovascular: regular rate and rhythm Gastrointestinal: non-tender, soft Results Result Diagram: 07/01/17 0512 07/03/17 0449 DAVID CORONADO MD Jul 03, 2017 07:26
[2017-07-03] MEDS ORDERED: POTASSIUM CHLORIDE (SR) 20 MEQ TAB PO STA (08:18)
[2017-07-03] MEDS ORDERED: METR500T14 PO (08:19)
[2017-07-03] MEDS ORDERED: LEVO500T10 PO (08:20)
--- NOTE | 2017-07-03 08:23 | PN ---
Date/Time of Note Date/Time of Note DATE: 07/03/17 TIME: 08:23 Assessment/Plan VTE Prophylaxis VTE Prophylaxis Intervention: SCD's Lines/Catheters IV Catheter Type (from Nrsg): Peripheral IV Assessment/Plan Assessment/Plan 1. Perforated abdominal viscus s/p right hemicolectomy POD #3 - secondary to colonoscopy - Surgery on board and recommendations appreciated. Cleared for d/c home with 5 days of antibiotics - Will continue pain control - Advance diet as tolerated - passing flatus 2. Leukocytosis secondary to #1- resolved - Received dose of antibiotics preop and has remained afebrile - continue to monitor 3. Hypokalemia - replaced - continue to monitor 4. HTN - BP stable - resumed Losartan 5. hyperlipidemia - on statin 6. asthma - PRN nebs 7. Disposition - Medically stable for d/c home Subjective 24 Hr Interval Summary Free Text/Dictation Patient doing well and no acute overnight events. No new complaints. Denies any worsening abdominal pain. Passing gas and abdomen remains soft. Exam/Review of Systems Vital Signs Vitals Vital Signs Date Time Temp Pulse Resp B/P Pulse Ox O2 Delivery O2 Flow Rate FiO2 07/03/17 01:33 99.3 79 18 132/61 95 07/01/17 05:00 Nasal Cannula 2.0 Intake and Output 07/02/17 07/02/17 07/03/17 15:00 23:00 07:00 Intake Total 1200 ml 500 ml Balance 1200 ml 500 ml Exam General: Patient is sitting in bed in no acute distress, answering questions appropriately Neck: Supple with full range of motion. Lungs: Clear to auscultation bilaterally no crackles rales or wheezing Heart: Normal S1-S2, Regular rhythm and rate. No murmur, S3, or S4 Abdomen: Soft, nondistended,mildly tender, surgical sites clean dry and intact, mayte intact Extremities: Normal to inspection, no edema no cyanosis Neurologic: Normal mental status, speech normal, cranial nerves II through XII are intact, motor and sensory are intact, no focal weakness Skin: no new rashes Results Result Diagram: 07/01/17 0512 07/03/17 0449 Results 24 hrs Laboratory Tests Test 07/03/17 04:49 Sodium Level 141 Potassium Level 3.6 Chloride Level 107 Carbon Dioxide Level 28 # Anion Gap 10 # Blood Urea Nitrogen 10 Creatinine 0.54 Glucose Level 97 Calcium Level 8.5 Phosphorus Level 4.4 Magnesium Level 1.9 Albumin 2.4 L Medications Medications Current Medications Sodium Chloride (NS) 1,000 ml @ 75 mls/hr [id number] IV Last administered on 23:44; Admin Dose 75 MLS/HR; Start 06/30/17 at 19:05 Ondansetron HCl (Zofran Inj) 4 mg Q6H PRN IV NAUSEA AND/OR VOMITING; Start at 19:30 Morphine Sulfate (morphine) 2 mg Q4H PRN IV PAIN LEVEL 7-10; Start 06/30/17 at 19:30 Pantoprazole (Protonix Iv) 40 mg DAILY@06 IV Last administered on 07/03/17 06 :31; Admin Dose 40 MG; Start 07/01/17 at 06:00 Ketorolac Tromethamine (Toradol) 15 mg Q6H IV Last administered on 07/03/17 04:25; Admin Dose 15 MG; Start 06/30/17 at 22:00; Stop 07/03/17 at 21:59 Acetaminophen (Tylenol Tab) 650 mg Q6H PRN PO PAIN AND OR ELEVATED TEMP; Start 06/30/17 at 22:00 Ibuprofen (Motrin) 600 mg Q6H PRN PO PAIN LEVEL 1-5; Start 07/03/17 at 22:00 Acetaminophen (Tylenol Tab) 650 mg Q6 PO Last administered on 07/03/17 00:12 ; Admin Dose 650 MG; Start 07/01/17 at 07:00 Atorvastatin Calcium (Lipitor) 10 mg DAILY@21 PO Last administered on 21:13; Admin Dose 10 MG; Start 07/02/17 at 21:00 Losartan Potassium (Cozaar) 25 mg DAILY PO Last administered on 07/02/17 11: 46; Admin Dose 25 MG; Start 07/02/17 at 09:30 MATHEW SORIANO MD Jul 03, 2017 08:23
--- NOTE | 2017-07-03 08:23 | PDOCDIS ---
Discharge Instructions DIAGNOSIS Discharge Diagnosis 1. Perforated abdominal viscus s/p right hemicolectomy 2. Leukocytosis- resolved 3. Hypokalemia 4. HTN 5. hyperlipidemia 6. asthma CONDITION Patient Condition: Stable HOME CARE INSTRUCTIONS: Diet Instructions: RegularSpecial Diet: start with soft diet and advance as tolerated ACTIVITY: Activity Restrictions: Slowly Increase Activity Rest between Activity Avoid heavy lifting Bathing Restrictions: Shower FOLLOW UP/APPOINTMENTS Follow-up Plan 1. Follow up with your Primary care physician in 1 week and they would be able to remove the mayte from your abdomen 2. Take antibiotics for 5 days: Levaquin daily and Flagyl three times a day 3. Follow post operative instructions provided by Dr. Caal 4. Continue taking medications as prescribed 5. If symptoms return/worsen, please return to ED or you can call Dr. Caal's office. REFERRALS Other Referrals Nawaf Caal MD Specialty: General Surgery Office Address [address] [place] [address] Office MATHEW SORIANO MD Jul 03, 2017 08:23
[2017-07-03] MEDS: LOSARTAN 25 MG TAB PO SCH (08:30)
[2017-07-03] MEDS ORDERED: KETO10TA PO (08:36)
--- NOTE | 2017-07-03 08:37 | DS ---
Date/Time of Note Date/Time of Note DATE: 07/03/17 TIME: 08:37 Discharge Summary Admission/Discharge Info Admit Date/Time Jun 30, 2017 at 18:32 Discharge Date/Time Discharge Diagnosis 1. Perforated abdominal viscus s/p right hemicolectomy 2. Leukocytosis- resolved 3. Hypokalemia 4. HTN 5. hyperlipidemia 6. asthma Patient Condition: Stable Consults Surgery- Dr. Caal Procedures Laparoscopic assisted right hemicolectomy Hx of Present Illness cc: abdominal pain x 2 days, nausea This is 66-year-old woman complains of distended abdomen, constipation, abdominal cramping diffusely 2 days status post colonoscopy on 06/28/[address] Arrieta. She developed a fever today. She denies hematuria or dysuria, no blood per rectum or melena, no chest pain or shortness of breath, no sore throat , no cough, no rash. Patient denies precipitating or alleviating factors for her pain. Patient did not eat today. At [facility] ER she had a CAT scan that was consistent with large pneumoperitoneum with rupture of abdominal viscus. Surgery on-call was consulted for emergent surgery. She had a laparoscopic-assisted right hemicolectomy performed. Patient tolerated the procedure well. She is currently sitting comfortably in bed. She does have an NG tube connected to wall suction which is draining minimal amount of dark bile. Her pain is well controlled at this time. Allergies: NKDA Medications: See MAR Exam General: Patient is sitting in bed in no acute distress HEENT: Atraumatic, normocephalic. The pupils are equal, round and reactive. Extraocular motor are intact, NG tube in place connected to wall suction Neck: Supple with full range of motion. No rigidity or meningismus Chest: Nontender Lungs: Clear to auscultation bilaterally no crackles rales or wheezing Heart: Normal S1-S2, Regular rhythm and rate. No murmur, S3, or S4 Abdomen: Soft, mild tender to palpation diffusely, surgical sites clean dry and intact, no bowel sounds at this time Extremities: Normal to inspection, no edema no cyanosis Neurologic: Normal mental status, speech normal, cranial nerves II through XII are intact, motor and sensory are intact, no focal weakness Hospital Course Patient did well after surgery and NG tube was discontinued shortly after procedure. Pain was well controlled and diet was advanced as tolerated. Patient was passing gas and no acute abdominal issues occurred during hospitalization. Patient was cleared from surgical standpoint for discharge home with PO antibiotics and outpatient follow ups. Home Meds Active Scripts Ketorolac Tromethamine* (Ketorolac Tromethamine*) 10 Mg Tablet, 10 MG PO Q6H Y for PAIN for 7 Days, #30 TAB Prov:MATHEW SORIANO MD 07/03/17 Levofloxacin* (Levofloxacin*) 500 Mg Tablet, 500 MG PO DAILY for 5 Days, #5 TAB Prov:MATHEW SORIANO MD 07/03/17 Metronidazole* (Metronidazole*) 500 Mg Tablet, 500 MG PO Q8 for 5 Days, #15 TAB Prov:MATHEW SORIANO MD 07/03/17 Reported Medications Albuterol Sulfate* (Ventolin HFA*) 18 Gm Hfa.aer.ad, 2 PUFF INHALATION Q6H Y for NEEDED, #1 INHALER 06/30/17 Losartan Potassium* (Losartan Potassium*) 25 Mg Tablet, 25 MG PO DAILY, TAB 06/30/17 Simvastatin* (Zocor*) 20 Mg Tablet, 20 MG PO QHS, #30 TAB 06/30/17 [Bronkaid] No Conflict Check 06/28/17 [Simvastatin] No Conflict Check 06/28/17 [Zantac] No Conflict Check 06/28/17 [Losartan] No Conflict Check 06/28/17 Discontinued Reported Medications [Asthma Medication] No Conflict Check 05/12/11 Follow-up Plan 1. Follow up with your Primary care physician in 1 week and they would be able to remove the mayte from your abdomen 2. Take antibiotics for 5 days: Levaquin daily and Flagyl three times a day 3. Follow post operative instructions provided by Dr. Caal 4. Continue taking medications as prescribed 5. If symptoms return/worsen, please return to ED or you can call Dr. Caal's office. Primary Care Provider Not On Staff Doctor Time spent on discharge: > 30 minutes Pending Labs Laboratory Tests Test 07/03/17 04:49 Sodium Level 141mmol/L (135-144) Potassium Level 3.6mmol/L (3.5-5.1) Chloride Level 107mmol/L (97-110) Carbon Dioxide Level 28mmol/L (21-31) Anion Gap 10 (8-16) Blood Urea Nitrogen 10mg/dl (7-20) Creatinine 0.54mg/dl (0.44-1.00) Glucose Level 97mg/dl (70-220) Calcium Level 8.5mg/dl (8.4-10.2) Phosphorus Level 4.4mg/dl (2.5-4.9) Magnesium Level 1.9mg/dl (1.7-2.5) Albumin 2.4g/dl (3.3-4.9) MATHEW SORIANO MD Jul 03, 2017 08:37
[2017-07-03 08:47] VITALS: BP 126/60; RESP 18
[2017-07-03] MEDS ORDERED: IBUPROFEN 600 MG TAB PO PRN (22:00)
== END 2017-07-03 13:10 | disposition home or self-care (01) | DRG 329 ==
LOC: E/R 15:42 → REC 18:32 → MS1 22:30
PROVIDERS: ADMIT Family Medicine; ATTEND Family Medicine
PROC: 0DTF4ZZ Resection of Right Large Intestine, Percutaneous Endoscopic Approach (ICD-10-PCS; principal; 2017-06-30 19:00)
DX: K91.89 Other postprocedural complications and disorders of digestive system (principal); K63.1 Perforation of intestine (nontraumatic); I10 Essential (primary) hypertension; Y83.8 Other surgical procedures as the cause of abnormal reaction of the patient, or of later complication, without mention of misadventure at the time of the procedure; E78.5 Hyperlipidemia, unspecified; J45.909 Unspecified asthma, uncomplicated; D72.829 Elevated white blood cell count, unspecified; Y92.89 Other specified places as the place of occurrence of the external cause
CPT/HCPCS: 36415; 74176; 80048; 80053; 80069; 81001; 83605; 83690; 83735; 85025; 85610; 87086; 88304; 96374; 96375; 97161; C9113; J0690; J0744; J1100; J1650; J1885; J2175; J2250; J2270; J2405; J2710; J3010; J3475; J3480; J7030

== ENCOUNTER 2019-03-06 10:07 | Emergency (ER) | payer MEDICARE, OTHER ==
[~2019-03-06] VITALS: Ht 157.5 cm; Wt 63.8 kg
[~2019-03-06 10:07] MED LIST changes: +ALBU18HF INHALATION; +ALBU90AE INHALATION; +FLUT16SP17 NASAL; +KETO10TA PO; +LEVO500T10 PO; +LISI-471 PO; +LOSA25TA12 PO; +METR-122 PO; +NAPR-985 PO; +ONDA4TAB8 PO; +RANI150T35 PO; +SIMV20TA PO; +SIMV20TA2 PO; -SUGAMMADEX SODIUM 200 MG/2 ML VIAL IV ONE
[2019-03-06 10:09] VITALS: Ht 157.5 cm; Wt 63.8 kg
[2019-03-06] MEDS ORDERED: ONDANSETRON 4 MG INJ IV STA (12:12)
[2019-03-06] MEDS ORDERED: SOD CHLORIDE 0.9% 1,000 ML IV STA (12:12)
[2019-03-06] MEDS ORDERED: ALPRAZOLAM 0.25 MG TAB PO ONE (12:30)
[2019-03-06] MEDS ORDERED: KETOROLAC 15 MG INJ IV STA (12:43)
[2019-03-06 14:37] VITALS: BP 132/70; PULSE 64; RESP 18
== END 2019-03-06 14:42 | disposition home or self-care (01) ==
LOC: E/R 10:07
DX: F41.9 Anxiety disorder, unspecified (principal); J45.909 Unspecified asthma, uncomplicated; I10 Essential (primary) hypertension; E03.9 Hypothyroidism, unspecified; R40.2142 Coma scale, eyes open, spontaneous, at arrival to emergency department; R40.2362 Coma scale, best motor response, obeys commands, at arrival to emergency department
CPT/HCPCS: 36415; 80053; 81003; 83690; 84484; 85025; 93005; 96374; 96375; 99284; J2405; J7030